=== PATIENT | male | born 1985 | race African-American/Black ===

== ENCOUNTER 2017-11-04 08:06 | Emergency (ER) | payer OTHER ==
[~2017-11-04] VITALS: Ht 185.4 cm; Wt 84.8 kg
[2017-11-04] MEDS ORDERED: GENVOYA TABLET1 EACH PO (08:43)
[2017-11-04 09:35] LABS: URINE BILIRUBIN 1+ (Negative); URINE BLOOD NEGATIVE (Negative); URINE CLARITY CLEAR; URINE COLOR YELLOW; URINE GLUCOSE-RANDOM* NEGATIVE (Negative); URINE KETONES NEGATIVE (Negative); URINE NITRITE-REFLEX NEGATIVE (Negative); URINE PROTEIN (DIPSTICK) TRACE (Negative); URINE SPECIFIC GRAVITY >= 1.030 (1.005-1.035)
[2017-11-04 09:39] LABS: ICTOTEST (BILI CONFIRMATORY) Negative (Negative); URINE LEUKOCYTES-REFLEX 1+ (Negative)
[2017-11-04 09:44] LABS: CASTS None Seen /LPF (None Seen); SQUAMOUS 0-3 Few /LPF (0-3); URINE WBC-REFLEX >25 Many /HPF (0-5)
[2017-11-04 09:45] LABS: BACTERIA-REFLEX 1-9 Few /HPF (None Seen); CRYSTALS None Seen /LPF (None Seen); MUCUS >6 Heavy strn/LPF (None Seen); URINE RBC 3-10 Few /HPF (0-2)
[2017-11-04] MEDS ORDERED: KEFLEX500 M1 PO (11:58)
[2017-11-04] MEDS ORDERED: OXYCODONE HCL 55 MG PO (11:58)
== END 2017-11-04 12:18 | disposition home or self-care (01) ==
LOC: ER 08:06
PROVIDERS: Emergency Medicine
DX: N45.3 Epididymo-orchitis (principal); A64 Unspecified sexually transmitted disease; F17.210 Nicotine dependence, cigarettes, uncomplicated

== ENCOUNTER 2019-12-30 14:33 | Emergency (ER) | payer OTHER ==
[~2019-12-30] VITALS: Ht 185.4 cm; Wt 77.1 kg
[~2019-12-30 14:33] MED LIST: GENVOYA TABLET1 EACH PO; KEFLEX500 M1 PO; OXYCODONE HCL 55 MG PO
[2019-12-30 14:48] VITALS: BP 126/75
== END 2019-12-30 15:20 | disposition home or self-care (01) ==
LOC: ER 14:33
DX: S50.811A Abrasion of right forearm, initial encounter (principal); F17.210 Nicotine dependence, cigarettes, uncomplicated; Z79.899 Other long term (current) drug therapy; W18.39XA Other fall on same level, initial encounter; Y93.H2 Activity, gardening and landscaping; Y92.89 Other specified places as the place of occurrence of the external cause; Y99.8 Other external cause status

== ENCOUNTER 2020-05-22 22:18 | Emergency (ER) | payer OTHER ==
[~2020-05-22] VITALS: Ht 185.4 cm; Wt 83.9 kg
[2020-05-23 00:20] LABS: URINE BILIRUBIN NEGATIVE (Negative); URINE BLOOD NEGATIVE (Negative); URINE CLARITY SL CLOUDY; URINE COLOR YELLOW; URINE GLUCOSE-RANDOM* NEGATIVE (Negative); URINE KETONES NEGATIVE (Negative); URINE NITRITE-REFLEX NEGATIVE (Negative); URINE PROTEIN (DIPSTICK) NEGATIVE (Negative); URINE SPECIFIC GRAVITY 1.025 (1.005-1.035)
[2020-05-23 00:27] LABS: URINE LEUKOCYTES-REFLEX 1+ (Negative)
[2020-05-23 00:32] LABS: SQUAMOUS 0-3 Few /LPF (0-3)
[2020-05-23 00:33] LABS: BACTERIA-REFLEX 1-9 Few /HPF (None Seen); CASTS None Seen /LPF (None Seen); CRYSTALS None Seen /LPF (None Seen); MUCUS 4-6 Moderate strn/LPF (None Seen); URINE RBC 0-2 Rare /HPF (0-2); URINE WBC-REFLEX 6-15 Few /HPF (0-5)
[2020-05-23 00:36] LABS: AMP/METHAMP POSITIVE (Negative); BARBITURATES Negative (Negative); BENZODIAZEPINES Negative (Negative); COCAINE Negative (Negative); METHADONE Negative (Negative); OPIATES Negative (Negative); PCP Negative (Negative)
[2020-05-23] MEDS ORDERED: KEFLEX500 M1 PO (00:59)
[2020-05-23] MEDS ORDERED: TYLENOL325 M1 PO (00:59)
[2020-05-23 01:03] VITALS: BP 118/88
== END 2020-05-23 01:10 | disposition home or self-care (01) ==
LOC: ER 22:18
PROVIDERS: Emergency Medicine
DX: R10.9 Unspecified abdominal pain (principal); F17.210 Nicotine dependence, cigarettes, uncomplicated; G89.29 Other chronic pain; M54.9 Dorsalgia, unspecified; Z79.899 Other long term (current) drug therapy

== ENCOUNTER 2020-05-23 02:58 | Emergency (ER) | payer OTHER ==
[~2020-05-23] VITALS: Ht 185.4 cm; Wt 83.9 kg
[~2020-05-23 02:58] MED LIST changes: +TYLENOL325 M1 PO
[2020-05-23 03:18] VITALS: BP 151/87
== END 2020-05-23 03:40 | disposition home or self-care (01) ==
LOC: ER 02:58
DX: F41.9 Anxiety disorder, unspecified (principal); F22 Delusional disorders; B20 Human immunodeficiency virus [HIV] disease; R30.0 Dysuria; R10.9 Unspecified abdominal pain; F17.210 Nicotine dependence, cigarettes, uncomplicated; Z79.899 Other long term (current) drug therapy; Z79.2 Long term (current) use of antibiotics

== ENCOUNTER 2020-06-23 17:53 | Emergency (ER) | payer OTHER ==
[~2020-06-23] VITALS: Ht 185.4 cm; Wt 84.4 kg
[2020-06-23 18:20] LABS: URINE BILIRUBIN NEGATIVE (Negative); URINE BLOOD NEGATIVE (Negative); URINE CLARITY CLEAR; URINE COLOR YELLOW; URINE GLUCOSE-RANDOM* NEGATIVE (Negative); URINE KETONES TRACE (Negative); URINE LEUKOCYTES-REFLEX NEGATIVE (Negative); URINE NITRITE-REFLEX NEGATIVE (Negative); URINE PROTEIN (DIPSTICK) 1+ (Negative); URINE UROBILINOGEN 0.2 E.U./dl (0.2-1.0)
[2020-06-23 18:23] LABS: ABSOLUTE NEUTROPHILS 3.9 thou/uL (1.4-8.2); BASOPHILS 0.5 % (0.0-2.0); EOSINOPHILS 0.1 % (0.0-3.0); HEMATOCRIT 36.6 % (42.0-52.0); HEMOGLOBIN 12.1 gm/dL (14.0-18.0); LYMPHOCYTES 20.2 % (24.0-44.0); MCH 27.7 pg (26.0-34.0); MCHC 33.1 g/dL (28.0-37.0); MCV 83.8 fL (80.0-100.0); MONOCYTES 8.5 % (1.0-8.0); PLATELET COUNT 228 thou/uL (150-400); POLYS 70.7 % (36.0-66.0); RBC 4.38 mil/uL (4.50-6.00); RDW 14.9 % (10.5-14.5); WBC 5.6 thou/uL (4.0-11.0)
[2020-06-23 18:29] LABS: AMP/METHAMP POSITIVE (Negative); BARBITURATES Negative (Negative); BENZODIAZEPINES POSITIVE (Negative); COCAINE Negative (Negative); METHADONE Negative (Negative); OPIATES Negative (Negative); PCP Negative (Negative)
[2020-06-23 18:38] LABS: ANION GAP 10 mmol/L (7-16); BUN 15 mg/dL (7-18); CALCIUM 8.7 mg/dL (8.5-10.1); CHLORIDE 103 mmol/L (98-107); CO2 26 mmol/L (21-32); GLUCOSE 134 mg/dL (74-106); POTASSIUM 3.9 mmol/L (3.5-5.1); SODIUM 139 mmol/L (136-145)
[2020-06-23 18:43] LABS: ALBUMIN 3.8 g/dL (3.4-5.0); SALICYLATE < 2.8 mg/dL (2.8-20.0); SGOT 56 U/L (15-37); SGPT 35 U/L (30-65); TOTAL BILIRUBIN 0.8 mg/dL (0.2-1.0); TOTAL PROTEIN 7.8 g/dL (6.4-8.2)
[2020-06-23 20:11] VITALS: BP 142/80
--- NOTE | 2020-06-24 09:29 | EKG ---
[facility] [place] [address] ELECTROCARDIOGRAM REPORT Name: LILIANA GAMEZ Room #: DEP [facility]#: [id number] Admission: 06/23/20 Attend Phys: Discharge: 06/23/20 Date of : 81 Report #: [id number] THIS REPORT FOR: cc: ENZO - Kim family physician/PCP ENZO - Kim family physician/PCP Tirso Jacobs MD [facility] THIS REPORT FOR: //name// [facility] ED Test Date: 2020-06-23 Test Time: 18:32:19 Pat Name: LILIANA GAMEZ Department: Room: Gender: Bending Frame Operator: [facility] : 1985 Requested By: Sera Liang Order Number: [id number] MD: Tirso Jacobs Measurements Intervals [place] Rate: 115 P: 55 MN: 142 QRS: 49 QRSD: 88 T: 34 QT: 330 QTc: 457 Interpretive Statements Sinus tachycardia Left atrial enlargement Baseline wander in lead(s) II,III,aVF Compared to ECG 07/22/2008 16:45:15 Atrial abnormality now present Poor R-wave progression no longer present T-wave abnormality no longer present Electronically Signed On 06-24-2020 9:29:43 CDT by Tirso Jacobs [email or web address] <ELECTRONICALLY SIGNED> By: Tirso Jacobs MD, FACC 06/24/20 0929 31 31 Tirso Jacobs MD, FACC /EPI
== END 2020-06-23 20:13 | disposition home or self-care (01) ==
LOC: ER 17:53
PROVIDERS: Nurse Practitioner Family
DX: F19.10 Other psychoactive substance abuse, uncomplicated (principal); F25.9 Schizoaffective disorder, unspecified; B20 Human immunodeficiency virus [HIV] disease; F17.210 Nicotine dependence, cigarettes, uncomplicated; Z79.899 Other long term (current) drug therapy; Z79.2 Long term (current) use of antibiotics